=== PATIENT | male | born 1960 | race Caucasian/White ===

== ENCOUNTER 2018-05-11 14:47 | Day surgery (SDC) | payer OTHER ==
[2018-05-08 15:40] VITALS: BMI 30.6
[2018-05-11] MEDS ORDERED: PROPOFOL 20 ML ONE (17:02)
[2018-05-11] MEDS ORDERED: KETOROLAC TROMETHAMINE 30 MG/1 ML VIAL ONE (17:04)
--- NOTE | 2018-05-11 17:52 | OP ---
Operative Note - Note: Operative Date: 05/11/18 Pre-Operative Diagnosis: Right renal stonr Operation: Right ESWL Findings: 7 mm mid pole Right kidney stone Post-Operative Diagnosis: Same as Pre-op Surgeon: Edgar Sanchez Anesthesia: Fractional Estimated Blood Loss (mls): 0
[2018-05-11 18:30] VITALS: BP 150/92; PULSE 81; TEMP 98.1
--- NOTE | 2018-05-12 10:21 | OP ---
DATE OF OPERATION: 05/11/2018 PREOPERATIVE DIAGNOSIS: Right renal stone. POSTOPERATIVE DIAGNOSIS: Right renal stone. PROCEDURE: Right extracorporeal shock wave lithotripsy. ATTENDING: Sandy Hanson MD ANESTHESIA: Fractional. DESCRIPTION OF OPERATION: The patient was brought in the operating room and placed in supine position on the operating room table. Ultrasonography and fluoroscopy were performed. A 7-mm right mid-pole stone was identified. At this point, anesthesia was initiated and preoperative antibiotics administered. Shock wave lithotripsy was started; 2500 impulses at 17 joules of power were administered to the stone. There was excellent fragmentation of the stone under real-time ultrasonography and fluoroscopy. The patient tolerated the procedure very well. The disposition of the patient was to the recovery room. SANDY HANSON M.D. [id number]
== END 2018-05-11 18:34 | disposition home or self-care (01) ==
LOC: JASU-SURG 14:47
PROVIDERS: ATTEND Urology
PROC: 0TF3XZZ Fragmentation in Right Kidney Pelvis, External Approach (ICD-10-PCS; principal; 2018-05-11 16:15)
DX: N20.0 Calculus of kidney (principal)

== ENCOUNTER 2018-09-07 08:34 | Day surgery (SDC) | payer OTHER ==
[2018-09-04 10:17] VITALS: BMI 30.1
[2018-09-07] MEDS ORDERED: oxyCODONE HCL 5 MG TABLET PO PRN ×2 (09:34)
[2018-09-07] MEDS ORDERED: ONDANSETRON 4 MG/2 ML VIAL IVPUSH PRN (09:34)
[2018-09-07] MEDS ORDERED: LACTATED RINGERS SOLUTION 1,000 ML IV SCH (09:45)
[2018-09-07] MEDS ORDERED: PROPOFOL 20 ML ONE (11:03)
[2018-09-07] MEDS ORDERED: MIDAZOLAM HCL 2 MG/2 ML SINGLE DOSE VIAL ONE (11:04)
--- NOTE | 2018-09-07 12:16 | OP ---
Operative Note - Note: Operative Date: 09/07/18 Pre-Operative Diagnosis: bph Operation: transurethral resection and vaporization of the prostate with bipolar system Findings: 3+ obstructive prostate with 1-2 bladder trabeculation Post-Operative Diagnosis: Same as Pre-op Surgeon: Edgar Sanchez Anesthesia: General Specimens Removed: prostatic chips Estimated Blood Loss (mls): 50 Drains & Tubes with Location: 24 gambian sosa catheter to straight drainage Operative Report Dictated: Yes
[2018-09-07 14:44] VITALS: BP 126/69; PULSE 74; TEMP 98.1
--- NOTE | 2018-09-07 21:00 | OP ---
DATE OF OPERATION: 09/07/2018 PREOPERATIVE DIAGNOSIS: Benign prostatic hypertrophy. POSTOPERATIVE DIAGNOSIS: Benign prostatic hypertrophy. PROCEDURE: Transurethral resection and vaporization of the prostate utilizing bipolar system. ANESTHESIA: General. ATTENDING: Sandy Hanson MD DESCRIPTION OF OPERATION: The patient was brought in the operating room, placed in supine position on the operating room table. Anesthesia and preoperative antibiotics were administered without complications. Patient was then placed in the dorsal lithotomy position and prepped and draped in the usual sterile manner. A resectoscope was placed under visualization into the bladder. The bladder was investigated and noted to have no evidence of stones or neoplasm. A 3+ obstructive prostate was noted. Resection of the prostate in order to debulk the prostate was performed initially. The margins of the resection were the bladder neck proximally and the verumontanum distally. The resection was performed in a 360-degree fashion. The resection was taken down to the level of the pseudocapsule of the prostate. Once this was performed, all prostatic chips were evacuated from the bladder utilizing the Sequenom evacuator. At this point, the working element, which had been the loop, was changed to a button. Vaporization and cauterization was then ensured utilizing the button element of the bipolar system. Residual tissue was vaporized, and excellent hemostasis was attained within the prostatic fossa. The margins of the vaporization and cauterization were the bladder neck proximally and the verumontanum distally. This was done again in a 360-degree fashion. Excellent hemostasis was attained. The bladder was investigated and noted to have no evidence of residual prostatic tissue. There was no evidence of perforation of the bladder. The abdomen was soft on examination during the procedure. With excellent hemostasis, the resectoscope was removed, and a Krause catheter placed, 30 mL were inflated into the balloon of the catheter and placed on light traction. Excellent drainage was noted which was light pink in color. The disposition of the patient was to the recovery room. The catheter had been placed to straight drainage. The patient will be observed in the recovery room and the postop area. If the patient continues to do well, he will be discharged home. SANDY HANSON M.D. /[id number]
--- NOTE | 2018-09-16 15:29 | PATH ---
Surgical Pathology Report Patient Name: PERLITA JOSEPH [facility]. Rec. 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 CARCINOMA PRESENT IN 30 OF 130 CHIPS. ESTIMATED PERCENTAGE PROSTATE TISSUE INVOLVED BY TUMOR IS 15%. LYMPHOVASCULAR INVASION NOT IDENTIFIED. PERINEURAL INVASION IS IDENTIFIED. THE REST OF THE PROSTATE TISSUE SHOW NODULAR PROSTATIC HYPERPLASIA, ACUTE AND CHRONIC PROSTATITIS. ALSO SEE SURGICAL PATHOLOGY CANCER CASE SUMMARY BELOW. Comment: Immunohistochemical stain "prostate triple stain" slide (block 3) results: CK-[id number] and p63 show loss of basal layer in the areas of adenocarcinoma. AMACR ([id number]) is negative. The morphology and immunophenotype support the above diagnosis. Immunohistochemistry stains performed at [place], [place] ([id number]) and interpreted at [facility]. Positive and negative controls (internal if applicable) show appropriate results. The results relayed to Betty, assistant corporate controller in Dr. Sanchez's office on September 162018. Comments Procedure _x_ Transurethral resection of the prostate (TURP) Histologic Type _x_ Acinar adenocarcinoma Histologic Grade Grade Group and Linkwood Score _x_ Grade group 1 (Linkwood Score 3+3=6) Intraductal Carcinoma (IDC) _x_ Not identified Tumor Quantitation Number of positive chips: 30 Total number of chips: 130 and Estimated percentage of prostatic tissue involved by tumor: 15 % Percentage of tumor in each chip: ranges from 30 to 100% Lymphovascular Invasion _x_ Not identified Perineural Invasion _x_ Present Additional Pathologic Findings _x_ Nodular prostatic hyperplasia _x_ Inflammation Treatment Effect _x_ No known presurgical therapy Electronically Signed Anjana Nugent M.D. Gross Description Received in formalin labeled "prostate tissue," is a 13 g, 10.0 x 8.0 x 0.6 cm aggregate of abundant rojas, irregular, firm to rubbery portions of tissue, consistent with prostate tissue. A vaccine customer representative portion is submitted in 9 cassettes. DL09/08/2018 saudi09/08/2018
== END 2018-09-07 14:40 | disposition home or self-care (01) ==
LOC: JASU-SURG 08:34
PROVIDERS: ATTEND Urology
PROC: 0VT08ZZ Resection of Prostate, Via Natural or Artificial Opening Endoscopic (ICD-10-PCS; principal; 2018-09-07 10:00)
DX: N40.0 Benign prostatic hyperplasia without lower urinary tract symptoms (principal)
CPT/HCPCS: 88305-TC; 94760

== ENCOUNTER 2020-08-10 07:56 | Inpatient (IN) | payer OTHER ==
[2020-08-10] MEDS ORDERED: SODIUM CHLORIDE 2,313 ML IV ONE (08:18)
[2020-08-10] MEDS ORDERED: ACETAMINOPHEN 1000 MG/100 ML VIAL (NON FORMULARY) IVPB ONE (08:20)
[2020-08-10] MEDS ORDERED: ACETAMINOPHEN INJECTION 100 ML IVPB ONE (08:36)
[2020-08-10] MEDS ORDERED: ONDANSETRON 4 MG/2 ML VIAL IVPUSH ONE (08:42)
[2020-08-10] MEDS ORDERED: ADENOSINE 6 MG/2 ML VIAL IVPUSH ONE ×3 (09:17→09:23)
[2020-08-10 09:18] LABS: BASO % 0.1 % (0-2.0); HEMATOCRIT 37.3 % (35.4-49); HEMOGLOBIN 12.7 GM/dL (11.7-16.9); LYMPH % 8.2 % (8-40); MCH 30.1 pg (25.7-33.7); MEAN CELL VOLUME 88.5 fl (80-96); MEAN PLT VOLUME 7.9 fl (7.5-11.1); NEUT % 81.7 % (42.8-82.8); PLATELET COUNT 203 K/MM3 (134-434); RBC 4.22 M/mm3 (4.00-5.60); RDW 13.1 % (11.9-15.9); WHITE BLOOD COUNT 5.5 K/mm3 (4.0-10.0)
[2020-08-10] MEDS ORDERED: ONDANSETRON 4 MG/2 ML VIAL ONE (09:23)
[2020-08-10 09:25] LABS: INR 1.29 (0.83-1.09); PROTHROMBIN TIME (PATIENT) 15.5 SEC (9.7-13.0)
[2020-08-10 09:27] LABS: ACTIVATED PTT 31.5 SECONDS (25.2-36.5)
[2020-08-10 09:29] LABS: URINE APPEARANCE CLEAR; URINE BILIRUBIN NEGATIVE (NEGATIVE); URINE COLOR YELLOW; URINE GLUCOSE (UA) NEGATIVE (NEGATIVE); URINE KETONE 1+ (NEGATIVE); URINE LEUK ESTERASE NEGATIVE (NEGATIVE); URINE NITRITE NEGATIVE (NEGATIVE); URINE PROTEIN NEGATIVE (NEGATIVE); URINE UROBILINOGEN 0.2 mg/dL (0.2-1.0)
[2020-08-10 09:36] LABS: EPI CELLS 3.9 /uL (0-25.1); HYALINE CASTS 1.02 /uL (0-3.1); URINE BACTERIA 4.7 /uL (0-1359); URINE WBC 1.7 /uL (0-25.8)
[2020-08-10 09:44] LABS: CHLORIDE 100 mmol/L (98-107); POTASSIUM 3.6 mmol/L (3.5-5.1); SODIUM 135 mmol/L (136-145)
[2020-08-10 09:45] LABS: BLOOD UREA NITROGEN 18.8 mg/dL (7-18); CALCIUM 8.3 mg/dL (8.5-10.1)
[2020-08-10 09:46] LABS: ALBUMIN 3.6 g/dl (3.4-5.0); ANION GAP 9 MMOL/L (8-16); CO2 26 mmol/L (21-32); GLUCOSE,RANDOM 97 mg/dL (74-106)
[2020-08-10 09:49] LABS: SGPT/ALT 31 U/L (13-61)
[2020-08-10 09:50] VITALS: BMI 30.1
[2020-08-10 09:51] LABS: BILIRUBIN,TOTAL 0.6 mg/dL (0.2-1); SGOT/AST 33 U/L (15-37)
[2020-08-10 09:52] LABS: ALK PHOS 85 U/L (45-117)
[2020-08-10 09:57] LABS: LDH 199 U/L (87-246)
[2020-08-10] MEDS ORDERED: AZITHROMYCIN 500 MG TABLET PO ONE (11:00)
[2020-08-10] MEDS ORDERED: CEFTRIAXONE 1,000 MG in DEXTROSE 5%-WATER - 50 ML IVPB ONE (11:00)
[2020-08-10] MEDS ORDERED: AZITHROMYCIN 250 MG TABLET ONE (11:16)
[2020-08-10] MEDS ORDERED: CEFTRIAXONE 1 GM/50 ML BAG ONE (11:16)
[2020-08-10] MEDS ORDERED: TRIMETHOBENZAMIDE HCL 300 MG CAPSULE PO PRN (12:40)
[2020-08-10] MEDS ORDERED: MAGNESIUM 1GM/D5W - 2 GM/200 ML IVPB IVPB ONE (13:12)
[2020-08-10] MEDS ORDERED: MAGNESIUM 2GM/50ML STERILE WATER IVPB IVPB ONE (13:30)
[2020-08-10] MEDS: SODIUM CHLORIDE 1,000 ML IV SCH (13:32)
[2020-08-10] MEDS ORDERED: METOPROLOL TARTRATE 5 MG/5 ML VIAL IVPUSH PRN (17:59)
[2020-08-10] MEDS: ZINC SULFATE 220 MG CAPSULE (FP) PO SCH (21:53)
[2020-08-10] MEDS: ASCORBIC ACID 500 MG TABLET (FP) PO SCH (21:53)
[2020-08-10] MEDS: ACETAMINOPHEN 325 MG TABLET (FP) PO PRN (21:58)
[2020-08-10 23:55] LABS: CHOLESTEROL 169 mg/dL (50-200); TRIGLYCERIDES 76 mg/dL (0-150)
[2020-08-10 23:56] LABS: LDL CHOLESTEROL (ONLY SJRH) 114 mg/dL (5-100)
[2020-08-10 23:57] LABS: HDL CHOLESTEROL 35 mg/dL (40-60)
[2020-08-11 08:04] LABS: BASO % 0.2 % (0-2.0); EOS % 0.1 % (0-4.5); HEMATOCRIT 34.9 % (35.4-49); HEMOGLOBIN 11.8 GM/dL (11.7-16.9); LYMPH % 20.6 % (8-40); MCHC 33.7 g/dl (32.0-35.9); MEAN CELL VOLUME 88.9 fl (80-96); MEAN PLT VOLUME 7.8 fl (7.5-11.1); MONO % 11.9 % (3.8-10.2); NEUT % 67.2 % (42.8-82.8); PLATELET COUNT 180 K/MM3 (134-434); RBC 3.93 M/mm3 (4.00-5.60); RDW 13.4 % (11.9-15.9); WHITE BLOOD COUNT 3.7 K/mm3 (4.0-10.0)
[2020-08-11 08:28] LABS: POTASSIUM 3.7 mmol/L (3.5-5.1)
[2020-08-11 08:33] LABS: ALBUMIN 3.1 g/dl (3.4-5.0); BLOOD UREA NITROGEN 17.5 mg/dL (7-18); CALCIUM 8.1 mg/dL (8.5-10.1)
[2020-08-11 08:36] LABS: CREATININE 0.8 mg/dL (0.55-1.3); MAGNESIUM 2.1 mg/dL (1.8-2.4); PHOSPHOROUS 3.2 mg/dL (2.5-4.9)
[2020-08-11 08:37] LABS: BILIRUBIN,TOTAL 0.4 mg/dL (0.2-1)
[2020-08-11 08:38] LABS: TOT PROT 5.9 g/dl (6.4-8.2)
[2020-08-11] MEDS ORDERED: PT OWN MED DRAWER 7, Y5N ONE ×2 (08:44→17:46)
[2020-08-11] MEDS ORDERED: cefTRIAXone SODIUM 1 GM VIAL ONE (08:44)
[2020-08-11] MEDS ORDERED: DEXTROSE 5%-WATER - 50 ML IVPB ONE (08:45)
[2020-08-11] MEDS: ZINC SULFATE 220 MG CAPSULE (FP) PO SCH ×2 (09:16→21:33)
[2020-08-11] MEDS: ASCORBIC ACID 500 MG TABLET (FP) PO SCH ×2 (09:16→21:33)
[2020-08-11] MEDS: CHOLECALCIFEROL (VIT D3) 5000 UNITS (125 MCG) CAP PO SCH (09:19)
[2020-08-11] MEDS: BICALUTAMIDE 50 MG TABLET (FP) PO SCH (09:19)
[2020-08-11] MEDS ORDERED: CEFTRIAXONE 1 GM in DEXTROSE 5%-WATER - 50 ML IVPB SCH (10:00)
[2020-08-11] MEDS ORDERED: DOXYCYCLINE INJECTION 100 MG in DEXTROSE 5%-WATER - 100 ML IVPB SCH (10:00)
[2020-08-11] MEDS ORDERED: ENOXAPARIN NA (PORCINE) 40 MG/0.4 ML DISP.SYRIN SQ SCH (10:00)
[2020-08-11] MEDS ORDERED: PATIENT'S OWN MEDICATION (NON-FORMULARY) (Lisinopril/Hydrochlorothiazide [Lisinopril-Hctz PO SCH (10:00)
[2020-08-11] MEDS ORDERED: amLODIPine BESYLATE 10 MG TABLET (FP) PO SCH (10:00)
[2020-08-11] MEDS ORDERED: DEXAMETHASONE 4 MG TABLET (FP) PO SCH (10:00)
[2020-08-11] MEDS: SODIUM CHLORIDE 1,000 ML IV SCH (13:16)
[2020-08-11] MEDS ORDERED: APIXABAN 5 MG TABLET PO SCH (13:45)
[2020-08-11] MEDS: METOPROLOL TARTRATE 25 MG TABLET (FP) PO SCH ×2 (15:43→21:33)
[2020-08-11] MEDS ORDERED: REMDESIVIR 200 MG in SODIUM CHLORIDE 210 ML IVPB ONE (16:02)
[2020-08-12] MEDS: ACETAMINOPHEN 325 MG TABLET (FP) PO PRN (00:12)
[2020-08-12 07:12] LABS: BASO % 0.1 % (0-2.0); HEMATOCRIT 36.1 % (35.4-49); HEMOGLOBIN 12.5 GM/dL (11.7-16.9); LYMPH % 27.6 % (8-40); MCH 30.4 pg (25.7-33.7); MCHC 34.6 g/dl (32.0-35.9); MEAN CELL VOLUME 87.7 fl (80-96); MEAN PLT VOLUME 7.7 fl (7.5-11.1); MONO % 14.9 % (3.8-10.2); NEUT % 57.4 % (42.8-82.8); PLATELET COUNT 227 K/MM3 (134-434); RBC 4.11 M/mm3 (4.00-5.60); RDW 13.3 % (11.9-15.9); WHITE BLOOD COUNT 3.9 K/mm3 (4.0-10.0)
[2020-08-12 07:28] LABS: POTASSIUM 4.1 mmol/L (3.5-5.1)
[2020-08-12 07:38] LABS: ALBUMIN 3.4 g/dl (3.4-5.0); BILIRUBIN,TOTAL 0.4 mg/dL (0.2-1); TOT PROT 6.8 g/dl (6.4-8.2)
[2020-08-12 07:39] LABS: CALCIUM 9.1 mg/dL (8.5-10.1); PHOSPHOROUS 3.9 mg/dL (2.5-4.9)
[2020-08-12 07:40] LABS: BLOOD UREA NITROGEN 17.8 mg/dL (7-18)
[2020-08-12] MEDS ORDERED: DEXMEDETOMIDINE IN 0.9 % NACL 400 MCG/100 ML VIAL IVPB SCH (09:45)
[2020-08-12] MEDS: METOPROLOL TARTRATE 25 MG TABLET (FP) PO SCH ×2 (10:16→21:25)
[2020-08-12] MEDS: DEXAMETHASONE SOD PHOSPHATE 4 MG/1 ML VIAL IVPUSH SCH (10:16)
[2020-08-12] MEDS: ENOXAPARIN NA (PORCINE) 40 MG/0.4 ML DISP.SYRIN SQ SCH (10:16)
[2020-08-12] MEDS: ZINC SULFATE 220 MG CAPSULE (FP) PO SCH ×2 (10:16→21:26)
[2020-08-12] MEDS: ASCORBIC ACID 500 MG TABLET (FP) PO SCH ×2 (10:16→21:26)
[2020-08-12] MEDS: BICALUTAMIDE 50 MG TABLET (FP) PO SCH (10:16)
[2020-08-12] MEDS: CHOLECALCIFEROL (VIT D3) 5000 UNITS (125 MCG) CAP PO SCH (10:16)
[2020-08-12] MEDS ORDERED: REMDESIVIR 100 MG in SODIUM CHLORIDE 230 ML IVPB SCH (16:02)
[2020-08-12] MEDS ORDERED: PT OWN MED DRAWER 7, Y5N ONE (20:52)
[2020-08-12] MEDS: FAMOTIDINE 20 MG TABLET PO SCH (21:26)
[2020-08-13 08:13] LABS: HEMATOCRIT 37.7 % (35.4-49); HEMOGLOBIN 12.8 GM/dL (11.7-16.9); MCH 29.9 pg (25.7-33.7); MEAN PLT VOLUME 7.9 fl (7.5-11.1); PLATELET COUNT 262 K/MM3 (134-434); RBC 4.28 M/mm3 (4.00-5.60); RDW 13.1 % (11.9-15.9); WHITE BLOOD COUNT 3.3 K/mm3 (4.0-10.0)
[2020-08-13 08:27] LABS: POTASSIUM 4.1 mmol/L (3.5-5.1)
[2020-08-13 08:38] LABS: ALBUMIN 3.4 g/dl (3.4-5.0)
[2020-08-13 08:39] LABS: BILIRUBIN,TOTAL 0.4 mg/dL (0.2-1); BLOOD UREA NITROGEN 24.2 mg/dL (7-18); TOT PROT 6.7 g/dl (6.4-8.2)
[2020-08-13 08:40] LABS: CALCIUM 8.7 mg/dL (8.5-10.1); MAGNESIUM 1.9 mg/dL (1.8-2.4)
[2020-08-13 08:41] LABS: PHOSPHOROUS 3.7 mg/dL (2.5-4.9)
[2020-08-13] MEDS ORDERED: PT OWN MED DRAWER 7, Y5N ONE (09:07)
[2020-08-13] MEDS: BICALUTAMIDE 50 MG TABLET (FP) PO SCH (09:15)
[2020-08-13] MEDS: CHOLECALCIFEROL (VIT D3) 5000 UNITS (125 MCG) CAP PO SCH (09:15)
[2020-08-13] MEDS: DEXAMETHASONE SOD PHOSPHATE 4 MG/1 ML VIAL IVPUSH SCH (09:16)
[2020-08-13] MEDS: METOPROLOL TARTRATE 25 MG TABLET (FP) PO SCH (09:16)
[2020-08-13] MEDS: ZINC SULFATE 220 MG CAPSULE (FP) PO SCH (09:16)
[2020-08-13] MEDS: ASCORBIC ACID 500 MG TABLET (FP) PO SCH (09:16)
[2020-08-13] MEDS: ENOXAPARIN NA (PORCINE) 40 MG/0.4 ML DISP.SYRIN SQ SCH (09:16)
[2020-08-13] MEDS: FAMOTIDINE 20 MG TABLET PO SCH (09:16)
[2020-08-13 10:02] LABS: ERYTHROCYTE SEDIMENTATION RATE 28 mm/hr (0-20)
[2020-08-13 15:45] VITALS: BP 126/81; PULSE 70; TEMP 99.3
== END 2020-08-13 15:47 | disposition home or self-care (01) | DRG 177 ==
LOC: JER 07:56 → JERBED 11:27 → J4W 20:34
PROVIDERS: ATTEND Internal Medicine
PROC: XW13325 Transfusion of Convalescent Plasma (Nonautologous) into Peripheral Vein, Percutaneous Approach, New Technology Group 5 (ICD-10-PCS; 2020-08-10)
PROC: 8E0ZXY6 Isolation (ICD-10-PCS; 2020-08-10)
PROC: XW033E5 Introduction of Remdesivir Anti-infective into Peripheral Vein, Percutaneous Approach, New Technology Group 5 (ICD-10-PCS; principal; 2020-08-11)
DX: U07.1 COVID-19 (principal); J96.01 Acute respiratory failure with hypoxia; J12.82 Pneumonia due to coronavirus disease 2019; I47.1 Supraventricular tachycardia; I10 Essential (primary) hypertension; N40.0 Benign prostatic hyperplasia without lower urinary tract symptoms; Z85.46 Personal history of malignant neoplasm of prostate; R55 Syncope and collapse; E66.9 Obesity, unspecified; Z68.30 Body mass index [BMI] 30.0-30.9, adult; N20.0 Calculus of kidney; R94.31 Abnormal electrocardiogram [ECG] [EKG]
CPT/HCPCS: 36415; 36430; 71045-TC-FY; 71250-TC; 80053; 80061; 81003; 82550; 82553; 82728; 83605; 83615; 83721; 83735; 84100; 84439; 84443; 84481; 84484; 85025; 85027; 85379; 85610; 85651; 85730; 86140; 86850; 86900; 86901; 87040; 87086; 87804; 87899; 93005; 93010; 94761; 99285-25; C9399; C9803; J0131; P9017; U0003